=== PATIENT | female | born 1940 | race Caucasian/White ===

== ENCOUNTER 2017-07-10 06:42 | Emergency (ER) | payer OTHER, MEDICAID ==
[2017-07-10 06:48] VITALS: BP_SYST 205; BP_SYST 212; BP_DIAS 101; BP_DIAS 106; PULSE 88; RESP 18; TEMP 98.3; O2SAT 97
[2017-07-10] MEDS ORDERED: LEVO25TA4 PO (07:37)
[2017-07-10] MEDS ORDERED: FLUT50SP EACH NARE (07:37)
[2017-07-10] MEDS ORDERED: LISI-515 PO (07:37)
[2017-07-10] MEDS ORDERED: BENZ100 PO (08:41)
--- NOTE | 2017-07-10 08:44 | PD ---
HPI Chief Complaint: Cold / Flu Symptoms Time Seen by Provider: 08:02 Travel History International Travel<30 days: No Contact w/Intl Traveler<30days: No Traveled to known affect area: No History of Present Illness HPI This patient complains of cough. Duration 5 days. Severity is mild. It is a dry cough. No fever or chest pain or shortness of breath. PFSH Past Medical History Hypertension: Yes Thyroid Disease: Yes Tetanus Vaccination: Unknown Menopausal: Yes Past Surgical History Hysterectomy: Yes Other Surgery: Yes (tumor removed from neck) Social History Alcohol Use: No Tobacco Use: No Substance Use: No Allergies-Medications (Allergen,Severity, Reaction): Coded Allergies: No Known Allergies (Unverified , 07/10/17) Reported Meds & Prescriptions Reported Meds & Active Scripts Active Tessalon Perles (Benzonatate) 100 Mg Cap 200 Mg PO TID PRN Reported Lisinopril 20 Mg Tab 20 Mg PO BID Levothyroxine (Levothyroxine Sodium) 25 Mcg Tab 25 Mcg PO DAILY Fluticasone Nasal [place] 50 Mcg/Act Naspr 50 Mcg EACH NARE DAILY 50 mcg/spray Review of Systems General / Constitutional: No: Fever HENT: No: Headaches Respiratory: Positive: Cough Physical Exam Narrative RESPIRATORY: Respiratory effort unlabored, no retractions or use of accessory muscles. Breath sounds are clear and symmetric. CARDIOVASCULAR: Regular rate and rhythm without murmur. Extremities showed no edema or varicosities. Blood pressure 186 systolic, but she just took her meds this morning SKIN: Focused skin assessment reveals no rash or ulcers. Skin is warm and dry. Palpation shows no induration or nodules. Data Data Last Documented VS Vital Signs Date Time Temp Pulse Resp B/P Pulse Ox O2 Delivery O2 Flow Rate FiO2 07/10/17 07:27 20 97 Room Air 07/10/17 06:48 98.3 88 212/106 205/101 MDM Medical Decision Making Medical Screen Exam Complete: Yes Emergency Medical Condition: Yes Medical Record Reviewed: Yes Differential Diagnosis Pneumonia, bronchitis, asthma Narrative Course I have reviewed the patient's electronic medical record. I suggested we do a chest x-ray with patient declined. She says she just has a cough and wants a prescription for cough. I prescribed her some Tessalon Perles. I recommended she follow up with her primary physician. She should check and record her blood pressure daily Should discuss her elevated blood pressures with her physician Diagnosis Primary Impression: Cough Additional Impression: Accelerated hypertension Additional Instructions: The patient was advised to follow up with their physician and return if they worsen. Check and record blood pressure daily Med/Other Pt SpecificInfo: Prescription(s) given Scripts Benzonatate (Tessalon Perles)100 Mg [id number] Mg PO TID PRN (COUGH) #20 CAP Ref 0 Prov:Dhruv Huizar MD 07/10/17 Disposition: 01 DISCHARGE HOME Condition: Stable Dhruv Huizar MD Jul 10, 2017 08:44
== END 2017-07-10 08:54 | disposition home or self-care (01) ==
LOC: NEPE 06:42
DX: I10 Essential (primary) hypertension (principal)
CPT/HCPCS: 99283